=== PATIENT | female | born 1990 ===

== ENCOUNTER 2019-05-05 04:23 | Inpatient (IN) | payer MEDICAID ==
[~2019-05-05] VITALS: Ht 162.6 cm; Wt 89.5 kg
[2019-05-05] MEDS ORDERED: D5%-LACTATED RINGERS 1,000 ML IV SCH (05:04)
[2019-05-05] MEDS ORDERED: OXYTOCIN 30U/ 0.9% NaCL 500ML 500 ML IV PRN (05:04)
[2019-05-05] MEDS ORDERED: OXYTOCIN 30U/ 0.9% NaCL 500ML 500 ML IV ONE (05:04)
[2019-05-05] MEDS ORDERED: ALBU1.25 NEB (05:14)
[2019-05-05] MEDS ORDERED: BUDE90AE INH (05:14)
[2019-05-05] MEDS ORDERED: CETI-237 PO (05:14)
[2019-05-05] MEDS ORDERED: NEWBORN KIT ONE (05:19)
[2019-05-05] MEDS: LACTATED RINGERS 1,000 ML IV SCH ×3 (05:25→22:27)
[2019-05-05] MEDS ORDERED: TERBUTALINE 1 MG/ML, 1ML SQ PRN (05:30)
[2019-05-05] MEDS ORDERED: CALCIUM CARBONATE 500 MG TAB.CHEW PO PRN (05:30)
[2019-05-05] MEDS ORDERED: ALUMINUM/MAG/SIMETHICONE 30 ML UDC PO PRN (05:30)
[2019-05-05] MEDS ORDERED: ONDANSETRON 2MG/ML, 2ML IVPush PRN (05:30)
[2019-05-05] MEDS ORDERED: TERBUTALINE 1 MG/ML, 1ML IVPush PRN (05:30)
[2019-05-05] MEDS ORDERED: FENTANYL PF 100 MCG/2ML IV PRN (05:30)
[2019-05-05 05:40] LABS: BASOPHILS # (AUTO) 0.05 x10^3/uL (0-0.1); BASOPHILS % (AUTO) 0 % (0-1); EOSINOPHILS # (AUTO) 0.19 x10^3/uL (0-0.4); EOSINOPHILS % (AUTO) 1 % (1-7); LYMPHOCYTES # (AUTO) 1.76 x10^3/uL (1-3.4); LYMPHOCYTES % (AUTO) 12 % (22-44); MD NO; MEAN CORPUSCULAR HEMOGLOBIN 32.2 pg (27.0-34.8); MEAN CORPUSCULAR HGB CONC 32.4 g/dL (32.4-35.8); MEAN CORPUSCULAR VOLUME 99.5 fL (80-100); MEAN PLATELET VOLUME 8.7 fL (7.4-10.4); MONOCYTES % (AUTO) 5 % (2-9); NEUTROPHILS # (AUTO) 12.27 x10^3/uL (1.8-6.8); NEUTROPHILS % (AUTO) 82 % (42-75); PLATELET COUNT 248 x10^3/uL (130-400); RED BLOOD COUNT 4.63 x10^6/uL (3.82-5.3); RED CELL DISTRIBUTION WIDTH 14.6 % (9.6-15.2)
[2019-05-05] MEDS ORDERED: OXYTOCIN 30U/ 0.9% NaCL 500ML 500 ML ONE ×2 (06:32→22:25)
[2019-05-05] MEDS ORDERED: MISOPROSTOL 200 MCG TABLET ONE (06:32)
[2019-05-05] MEDS ORDERED: LIDOCAINE 1%, 20ML ONE ×2 (06:32→15:17)
[2019-05-05] MEDS ORDERED: FENTANYL PF 100 MCG/2ML ONE ×6 (08:09→15:17)
[2019-05-05] MEDS: FENTANYL PF 100 MCG/2ML IVPush PRN ×5 (08:11→13:49)
[2019-05-05] MEDS ORDERED: ONDANSETRON 2MG/ML, 2ML ONE (09:16)
[2019-05-05] MEDS ORDERED: FENTANYL/BUPIV./NS/PF 250 ML EPIDCONT ONE (15:11)
[2019-05-05] MEDS ORDERED: BUPIVACAINE/PF 0.25% ONE (15:17)
[2019-05-05] MEDS ORDERED: EPHEDRINE 50 MG/ML, 1ML ONE (15:17)
[2019-05-05] MEDS ORDERED: LIDOCAINE/PF 1.5%-EPI 1:200K, 30ML ONE (15:17)
[2019-05-05] MEDS ORDERED: FENTANYL/BUPIV./NS/PF 250 ML EPIDCONT SCH (15:54)
[2019-05-05] MEDS ORDERED: LACTATED RINGERS 1,000 ML IV SCH (15:54)
[2019-05-05] MEDS ORDERED: LACTATED RINGERS 1,000 ML IVBOLUS PRN (16:00)
[2019-05-05] MEDS ORDERED: NALOXONE 0.4 MG/ML, 1ML IVPush PRN (16:00)
[2019-05-05] MEDS ORDERED: EPHEDRINE 50 MG/ML, 1ML IVPush PRN (16:00)
[2019-05-05] MEDS ORDERED: CALCIUM CARBONATE 500 MG TAB.CHEW ONE ×2 (19:17→19:42)
[2019-05-05] MEDS: OXYTOCIN 30U/ 0.9% NaCL 500ML 500 ML IV SCH (20:52)
[2019-05-05] MEDS ORDERED: HYDROcodone/APAP 5/325 TABLET PO PRN (21:00)
[2019-05-05] MEDS ORDERED: IBUPROFEN 800 MG TABLET PO PRN ×2 (21:00→22:30)
[2019-05-05] MEDS ORDERED: MISOPROSTOL 200 MCG TABLET PR PRN (21:00)
[2019-05-05] MEDS ORDERED: BISACODYL 10 MG SUPP PR PRN (21:00)
[2019-05-05] MEDS ORDERED: ONDANSETRON 2MG/ML, 2ML IV PRN (21:00)
[2019-05-05] MEDS ORDERED: RHOGAM FROM BLOOD BANK 1 NOTE EA IM/IV ONE (21:00)
[2019-05-05] MEDS ORDERED: OXYcodone/APAP 5/325MG TABLET PO PRN (21:00)
[2019-05-05] MEDS ORDERED: ACETAMINOPHEN 325 MG TABLET PO PRN (21:00)
[2019-05-05] MEDS ORDERED: IBUPROFEN 600 MG TABLET ONE (22:21)
[2019-05-05 23:05] VITALS: BP 113/65
[2019-05-06 03:25] VITALS: BP 120/76
[2019-05-06] MEDS: IBUPROFEN 600 MG TABLET PO PRN ×3 (04:19→19:38)
[2019-05-06 06:15] LABS: MEAN CORPUSCULAR HEMOGLOBIN 31.9 pg (27.0-34.8); MEAN CORPUSCULAR HGB CONC 32.8 g/dL (32.4-35.8); MEAN CORPUSCULAR VOLUME 97.4 fL (80-100); MEAN PLATELET VOLUME 8.6 fL (7.4-10.4); PLATELET COUNT 197 x10^3/uL (130-400); RED BLOOD COUNT 3.73 x10^6/uL (3.82-5.3); RED CELL DISTRIBUTION WIDTH 14.2 % (9.6-15.2)
[2019-05-06 06:49] LABS: BASOPHILS # (AUTO) 0.02 x10^3/uL (0-0.1); BASOPHILS % (AUTO) 0 % (0-1); EOSINOPHILS # (AUTO) 0.01 x10^3/uL (0-0.4); EOSINOPHILS % (AUTO) 0 % (1-7); LYMPHOCYTES # (AUTO) 1.69 x10^3/uL (1-3.4); LYMPHOCYTES % (AUTO) 12 % (22-44); MD SCAN; MONOCYTES # (AUTO) 0.75 x10^3/uL (0.2-0.8); MONOCYTES % (AUTO) 5 % (2-9); NEUTROPHILS # (AUTO) 12.13 x10^3/uL (1.8-6.8); NEUTROPHILS % (AUTO) 83 % (42-75)
[2019-05-06] MEDS: OXYTOCIN 30U/ 0.9% NaCL 500ML 500 ML IV SCH ×2 (06:52→16:52)
[2019-05-06] MEDS: DOCUSATE 100 MG CAPSULE PO PRN (07:33)
[2019-05-06] MEDS: PRENATAL VIT/IRON/FA 1 EACH TABLET PO SCH (07:33)
[2019-05-06 08:00] VITALS: BP 106/70
[2019-05-06] MEDS ORDERED: MEASLES,MUMPS&RUBELLA VACC/PF 0.5 ML SQ-VACC ONE (10:30)
[2019-05-06 13:16] VITALS: BP 115/77
[2019-05-06 19:30] VITALS: BP 106/71
[2019-05-07] MEDS: OXYTOCIN 30U/ 0.9% NaCL 500ML 500 ML IV SCH (02:52)
[2019-05-07] MEDS ORDERED: IBUP-1223 PO (05:35)
[2019-05-07] MEDS: IBUPROFEN 600 MG TABLET PO PRN ×2 (07:05→14:45)
[2019-05-07] MEDS: PRENATAL VIT/IRON/FA 1 EACH TABLET PO SCH (07:20)
[2019-05-07] MEDS: DOCUSATE 100 MG CAPSULE PO PRN (07:24)
[2019-05-07 07:25] VITALS: BP 118/77
== END 2019-05-07 14:45 | disposition home or self-care (01) | DRG 560 ==
LOC: LDIP 04:23 → 2NW 23:00
PROVIDERS: ADMIT Obstetrics & Gynecology; ATTEND Obstetrics & Gynecology
PROC: 10E0XZZ Delivery of Products of Conception, External Approach (ICD-10-PCS; principal; 2019-05-05)
PROC: 0UQKXZZ Repair Hymen, External Approach (ICD-10-PCS; 2019-05-05)
PROC: 0UQMXZZ Repair Vulva, External Approach (ICD-10-PCS; 2019-05-05)
PROC: 3E0R3BZ Introduction of Anesthetic Agent into Spinal Canal, Percutaneous Approach (ICD-10-PCS; 2019-05-05)
PROC: 00HU33Z Insertion of Infusion Device into Spinal Canal, Percutaneous Approach (ICD-10-PCS; 2019-05-05)
DX: O75.3 Other infection during labor (principal); A41.9 Sepsis, unspecified organism; Z37.0 Single live birth; J45.909 Unspecified asthma, uncomplicated; O99.52 Diseases of the respiratory system complicating childbirth; Z3A.39 39 weeks gestation of pregnancy; O40.3XX0 Polyhydramnios, third trimester, not applicable or unspecified; O71.82 Other specified trauma to perineum and vulva; O70.0 First degree perineal laceration during delivery
CPT/HCPCS: 36415; 85025; 86850; 86900; G0378; J2405; J3010; J3490; J2590; J7120

== ENCOUNTER 2019-06-07 12:48 | Emergency (ER) | payer MEDICAID ==
[~2019-06-07] VITALS: Ht 162.6 cm; Wt 76.9 kg
[~2019-06-07 12:48] MED LIST: ALBU1.25 NEB; BUDE90AE INH; CETI-237 PO; IBUP-1223 PO
[2019-06-07] MEDS ORDERED: KETOROLAC 30 MG/1 ML ONE (13:14)
[2019-06-07] MEDS ORDERED: PROCHLORPERAZINE 5 MG/ML, 2ML ONE (13:14)
[2019-06-07] MEDS ORDERED: DIPHENHYDRAMINE 50 MG/ML, 1ML ONE (13:14)
[2019-06-07 13:19] LABS: BASOPHILS # (AUTO) 0.03 x10^3/uL (0-0.1); BASOPHILS % (AUTO) 0 % (0-1); EOSINOPHILS % (AUTO) 3 % (1-7); LYMPHOCYTES # (AUTO) 1.69 x10^3/uL (1-3.4); LYMPHOCYTES % (AUTO) 16 % (22-44); MD NO; MEAN CORPUSCULAR HGB CONC 33.1 g/dL (32.4-35.8); MEAN CORPUSCULAR VOLUME 96.8 fL (80-100); MONOCYTES # (AUTO) 0.63 x10^3/uL (0.2-0.8); MONOCYTES % (AUTO) 6 % (2-9); NEUTROPHILS # (AUTO) 8.01 x10^3/uL (1.8-6.8); NEUTROPHILS % (AUTO) 75 % (42-75); PLATELET COUNT 335 x10^3/uL (130-400); RED BLOOD COUNT 4.63 x10^6/uL (3.82-5.3); RED CELL DISTRIBUTION WIDTH 13.8 % (9.6-15.2)
[2019-06-07 13:30] LABS: ALANINE AMINOTRANSFERASE 25 U/L (12-78); ALBUMIN 3.6 g/dL (3.4-5.0); ANION GAP 8 mmol/L (5-15); CALCIUM 8.9 mg/dL (8.5-10.1); CHLORIDE 111 mmol/L (98-107); CREATININE 0.69 mg/dL (0.55-1.02)
[2019-06-07] MEDS ORDERED: DIPHENHYDRAMINE 50 MG/ML, 1ML IVPush ONE (13:30)
[2019-06-07] MEDS ORDERED: KETOROLAC 30 MG/1 ML IVPush ONE (13:30)
[2019-06-07] MEDS ORDERED: SODIUM CHLORIDE 0.9% 1,000ML IVBOLUS ONE (13:30)
[2019-06-07] MEDS ORDERED: PROCHLORPERAZINE 5 MG/ML, 2ML IVPush ONE (13:30)
[2019-06-07] MEDS ORDERED: SODIUM CHLORIDE FLUSH 10ML SYR IVF ONE (13:30)
[2019-06-07 13:32] LABS: ALKALINE PHOSPHATASE 118 U/L (45-117); BILIRUBIN,TOTAL 0.6 mg/dL (0.2-1.0); TOTAL PROTEIN 7.2 g/dL (6.4-8.2)
--- NOTE | 2019-06-07 13:52 | NUR ---
Task rn: Piv placed with ultrasound. Primary RN made aware
[2019-06-07 13:58] VITALS: BP 110/70
== END 2019-06-07 15:00 | disposition home or self-care (01) ==
LOC: ED 14:10
DX: R51 Headache (principal); M54.2 Cervicalgia; R11.10 Vomiting, unspecified
CPT/HCPCS: 36415; 80053; 85025; 96361; 96374; 96375; 99283; J0780; J1200; J1885; J7030